=== PATIENT | female | born 2000 | race Caucasian/White ===

== ENCOUNTER 2023-06-24 16:58 | Inpatient (IN) | payer SELFPAY ==
[2023-06-24] MEDS ORDERED: Lidocaine 1% 50 ML MDV INJECT PRN (17:46)
[2023-06-24] MEDS ORDERED: Ondansetron 4 MG/2 ML SDV IVPUSH PRN (17:46)
[2023-06-24] MEDS ORDERED: Calcium Carbonate 500 MG Tab.Chew PO PRN (17:46)
[2023-06-24] MEDS ORDERED: Sodium Chloride 0.9% 10 ML Syringe FLUSH PRN (17:46)
[2023-06-24] MEDS ORDERED: Famotidine 20 MG Tab PO PRN (17:46)
[2023-06-24] MEDS ORDERED: Lactated Ringers 1,000 ML IV SCH (18:00)
[2023-06-24] MEDS ORDERED: Oxytocin/Lactated Ringers 30 UNIT/500 ML BAG IV SCH (18:00)
[2023-06-24 18:16] LABS: BASOPHILS PERCENT AUTO 0.1 % (0.0-1.0); HEMATOCRIT 38.9 % (37.0-47.0); HEMOGLOBIN 13.7 gm/dl (12.0-16.0); IMMATURE GRAN ABSOLUTE AUTO 0.04 K/mm3 (0.00-0.05); IMMATURE GRAN PERCENT AUTO 0.4 % (0.0-0.4); LYMPHOCYTES ABSOLUTE AUTO 1.1 K/mm3 (1.0-4.8); LYMPHOCYTES PERCENT AUTO 10.1 % (24.0-44.0); MEAN CORPUSCULAR HEMOGLOBIN 30.6 pg (28.0-32.0); MEAN CORPUSCULAR HGB CONC 35.2 g/dl (32.0-36.0); MEAN PLATELET VOLUME 11.9 fl (9.4-12.3); MONOCYTES ABSOLUTE AUTO 0.8 K/mm3 (0.0-0.8); MONOCYTES PERCENT AUTO 7.5 % (0.0-8.0); NEUTROPHILS ABSOLUTE AUTO 9.1 K/mm3 (1.8-7.7); NEUTROPHILS PERCENT AUTO 81.9 % (41.0-71.0); PLATELET COUNT,PLT 151 K/mm3 (150-400); RED BLOOD CELL COUNT 4.47 M/mm3 (4.10-5.30); WHITE BLOOD CELL COUNT,WBC 11.13 K/mm3 (3.9-11.3)
[2023-06-24] MEDS: Nalbuphine HCl 10 MG/ 1ML Amp IVPUSH PRN ×2 (20:23→22:39)
[2023-06-25] MEDS ORDERED: Bupivacaine/fentaNYL/NS 100 ML Bag EPIDUR PRN (00:30)
[2023-06-25] MEDS ORDERED: ePHEDrine 50 MG/ML SDV IVPUSH PRN (00:30)
[2023-06-25] MEDS ORDERED: fentaNYL 100 MCG/2 ML SDV EPIDUR PRN (00:30)
[2023-06-25] MEDS ORDERED: diphenhydrAMINE 50 MG/ML SDV IVPUSH PRN (00:30)
[2023-06-25] MEDS ORDERED: Methylergonovine 0.2 MG/1 ML Amp IM ONE (02:34)
[2023-06-25] MEDS ORDERED: Docusate Sodium 100 MG Cap PO PRN (05:15)
[2023-06-25] MEDS ORDERED: Witch Hazel Medicated Pads 40/Jar TOP PRN (05:15)
[2023-06-25] MEDS ORDERED: Benzocaine/Menthol 20%-0.5% Spray 78 GM Cannister TOP PRN (05:15)
[2023-06-25] MEDS ORDERED: Benzocaine/Cetylpyridinium/Menthol Lozenge MUCMEM PRN (05:20)
[2023-06-25] MEDS: Acetaminophen 325 MG Tab PO PRN ×2 (05:25→21:13)
[2023-06-25 08:09] LABS: BASOPHILS PERCENT AUTO 0.2 % (0.0-1.0); HEMATOCRIT 37.2 % (37.0-47.0); IMMATURE GRAN ABSOLUTE AUTO 0.09 K/mm3 (0.00-0.05); IMMATURE GRAN PERCENT AUTO 0.5 % (0.0-0.4); LYMPHOCYTES PERCENT AUTO 5.2 % (24.0-44.0); MEAN CORPUSCULAR HEMOGLOBIN 30.7 pg (28.0-32.0); MEAN CORPUSCULAR HGB CONC 34.9 g/dl (32.0-36.0); MEAN CORPUSCULAR VOLUME 87.9 fl (83.0-99.0); MEAN PLATELET VOLUME 11.6 fl (9.4-12.3); MONOCYTES ABSOLUTE AUTO 1.3 K/mm3 (0.0-0.8); MONOCYTES PERCENT AUTO 6.6 % (0.0-8.0); NEUTROPHILS ABSOLUTE AUTO 17.4 K/mm3 (1.8-7.7); NEUTROPHILS PERCENT AUTO 87.5 % (41.0-71.0); PLATELET COUNT,PLT 156 K/mm3 (150-400); RED BLOOD CELL COUNT 4.23 M/mm3 (4.10-5.30); WHITE BLOOD CELL COUNT,WBC 19.82 K/mm3 (3.9-11.3)
[2023-06-25] MEDS ORDERED: Prenatal Multivitamin with Calcium/Folic Acid/Iron Tab PO SCH (09:00)
[2023-06-25] MEDS: Ibuprofen 600 MG Tab PO PRN ×2 (16:15→21:15)
[2023-06-26] MEDS: Acetaminophen 325 MG Tab PO PRN (01:50)
[2023-06-26] MEDS: Ibuprofen 600 MG Tab PO PRN (02:54)
[2023-06-26] MEDS: Sodium Chloride 0.9% 10 ML Syringe FLUSH SCH (06:07)
== END 2023-06-26 11:10 | disposition home or self-care (01) | DRG 806 ==
LOC: JD.OBCHECK 16:58 → JD.OB 17:01 → JD.OBCHECK 17:48 → JD.OB 17:48 → OBSVTOIN 06-25 01:29 → JD.OB 06-25 01:30
PROVIDERS: ADMIT Family Medicine; ATTEND Family Medicine
PROC: 10E0XZZ Delivery of Products of Conception, External Approach (ICD-10-PCS; principal; 2023-06-25)
PROC: 0HQ9XZZ Repair Perineum Skin, External Approach (ICD-10-PCS; principal; 2023-06-25)
DX: O48.0 Post-term pregnancy (principal); O72.1 Other immediate postpartum hemorrhage; Z37.0 Single live birth; O76 Abnormality in fetal heart rate and rhythm complicating labor and delivery; O42.02 Full-term premature rupture of membranes, onset of labor within 24 hours of rupture; O69.81X0 Labor and delivery complicated by cord around neck, without compression, not applicable or unspecified; O70.0 First degree perineal laceration during delivery; Z3A.41 41 weeks gestation of pregnancy
CPT/HCPCS: 36415; 59025; 59409; 85025; 86592; 86850; 86900; 86901; A9270-GY; J2001; J2210; J2300; J7120; J7999